=== PATIENT | male | born 2000 | race Caucasian/White ===

== ENCOUNTER 2019-03-24 19:47 | Emergency (ER) | payer SELFPAY ==
[~2019-03-24] VITALS: Ht 167.6 cm; Wt 59.0 kg
[2019-03-24 20:06] VITALS: BP 123/72
== END 2019-03-24 22:00 | disposition left against medical advice (07) ==
LOC: ER 19:47
DX: Z53.21 Procedure and treatment not carried out due to patient leaving prior to being seen by health care provider (principal)
CPT/HCPCS: 93005